=== PATIENT | female | born 1975 | race Caucasian/White ===

== ENCOUNTER 2017-02-13 09:28 | Emergency (ER) | payer OTHER, MEDICAID ==
[2017-02-13 09:46] VITALS: RESP 18; TEMP 97.7
--- NOTE | 2017-02-13 10:12 | EDPHY ---
H & P Time Seen by Provider: 02/13/17 09:50 HPI/ROS: HPI Dental pain. 41-year-old female by private vehicle. She reports that she had all of her lower teeth that were remaining removed on Tuesday by a dentist. She was prescribed an antibiotic as well as Vicodin. She reports the Vicodin has not been working. She complains of tooth pain along the lower jaw on both sides. She denies facial swelling. No fever. No bleeding or drainage. No other complaint. ROS: Constitutional: No fever, no chills. No weakness. Eyes: No discharge. No changes in vision. ENT: No sore throat. No nasal congestion or rhinorrhea. As above. Musculoskeletal: No back pain. No neck pain. No myalgias or arthralgias. Skin: No rashes. Neurological: No headache. No focal weakness or altered sensation. Past medical history: Bipolar, agoraphobia, hypothyroid. Social history: Here by herself. No alcohol. Physical Exam: General Appearance: Alert, no distress. This patient is responding to questions appropriately and in full sentences. This patient appears well- hydrated and well-nourished. Eyes: Pupils equal and round no pallor or injection. No lid edema, erythema or injection. ENT, Mouth: Mucous membranes are moist. The pharyngeal tissues are unremarkable. No edema or swelling. No asymmetry suggestive of abscess. No erythema or exudates. She has had all of her front lower teeth removed. She does not have any upper teeth as well. There is no evidence of dry socket or infectious process. There is no significant gingival swelling. No facial swelling. No bleeding or drainage noted. Respiratory: There are no retractions, lungs are clear to auscultation with good air movement bilaterally. Neurological: Motor sensory function is grossly intact. Cranial nerves are normal. Gait is normal. Skin: Warm and dry, no rashes. Musculoskeletal: Neck is supple and nontender. No lymphadenopathy. Extremities are symmetrical. All joints range without pain or impingement. Psychiatric: No agitation. No depression. Database: EKG: Imaging: Procedures: Bilateral inferior alveolar nerve block: 1.5 cc of bupivacaine without epinephrine injected bilateral lower mandibular ramus. Excellent anesthesia of the inferior alveolar nerve was achieved bilaterally. Patient has great relief. Procedure performed by myself. No complications. Emergency department course: Patient consents to above inferior alveolar nerve block. Excellent anesthesia achieved. She feels comfortable going home. Follow-up with dentist discussed. She was instructed to continue her antibiotics and pain medications as needed. Nerve block should last between 6 and 10 hours. This was discussed with her. All of her questions were answered. Return to emergency department precautions reviewed. She was discharged in good condition. Differential Diagnosis: The differential diagnosis on this patient includes but is not limited to dental pain status post tooth extraction. Dental infection, dry socket, dental trauma unlikely. This represents a partial list of diagnoses considered. These considerations are based on history, physical exam, past history, reassessment and diagnostic testing. Smoking Status: Heavy smoker Constitutional: Initial Vital Signs Temperature (C) 36.5 C 02/13/17 09:43 Heart Rate 94 02/13/17 09:43 Respiratory Rate 18 02/13/17 09:43 Blood Pressure 119/77 02/13/17 09:43 O2 Sat (%) 95 02/13/17 09:43 O2 Delivery Mode Room Air Allergies/Adverse Reactions: Sulfa (Sulfonamide Antibiotics) Allergy (Verified 02/13/17 09:41) Home Medications: Medication Instructions Recorded Levothyroxine 02/13/17 Departure - Departure Disposition: Home, Routine, Self-Care Clinical Impression: Pain, dental Condition: Good Instructions: Toothache (ED) Additional Instructions: Read and follow provided instructions. Follow-up with your dentist in 1-2 days for re-evaluation. Ibuprofen dosin mg every 6 hours with meals for the next 3 days only. [place]/Percocet dosin-2 every 4-[address] for [address] Do not drive on this medication. Return to the emergency department for worsening symptoms or other serious concerns. Referrals: MILTON VALDERRAMA,. [Primary Care Provider] - As per Instructions
[2017-02-13 10:39] VITALS: BP 100/70; PULSE 88; O2SAT 92
== END 2017-02-13 10:30 | disposition home or self-care (01) ==
LOC: CED 09:28
PROC: 3E0X3CZ (ICD-10-PCS; principal; 2017-02-13)
DX: K08.89 Other specified disorders of teeth and supporting structures (principal); F17.200 Nicotine dependence, unspecified, uncomplicated